=== PATIENT | male | born 1975 | race Caucasian/White ===

== ENCOUNTER 2023-12-09 17:55 | Emergency (ER) | payer BC, SELFPAY ==
[2023-12-09 17:56] VITALS: BMI 24.5
[2023-12-09 17:58] VITALS: BP 114/81
--- NOTE | 2023-12-09 19:05 | ED.GENMED ---
History of Present Illness
General
Chief Complaint: Headache
Source: patient
Exam Limitations: none
Time Seen by Provider: 12/09/23 18:39
Nursing documentation reviewed up to this point in time: agreed with
Travel History
Have you had any contact with someone who has COVID-19?: No
Do you have any symptoms of coronavirus? Fever > 100 degrees, chills, cough, shortness of breath, sore throat, loss of taste or smell, muscle aches, or headache?: No
History of Present Illness
History of Present Illness:
48-year-old male presents to the ER for evaluation. Patient was brought by . Patient started with headache last night and then did develop a fever of 101. He normally aspirin if needed and did take aspirin however this has not relieved his
headache. He has had occasional headaches in the past but he reports this is the worst headache he has had. He does report however he feels that it started more gradually. He again had a fever today of 101 but denies any runny nose nasal
congestion sore throat body aches. He denies any photophobia, denies any neck pain or neck sensitivity. Denies any injury
Review of Systems
Review of Systems
Allergies reviewed?: Yes
All Other Systems: ROS reviewed and negative except as documented in HPI and ROS
Constitutional: Reports fever
EENT: Reports no symptoms
Respiratory: Reports no symptoms; Denies cough or trouble breathing
Cardiac: Reports no symptoms
ABD/GI: Reports no symptoms; Denies nausea or vomiting
: Reports no symptoms
Musculoskeletal: Reports no symptoms
Skin: Reports no symptoms
Neurological: Reports headache; Denies dizzy, weakness or numbness
Psychiatric: Reports no symptoms
Phy Exam
General Physical Exam
General Presentation: no apparent distress
General age: appears stated age
General Skin: warm and dry
General Habitus: normal
General Mental: alert
General Hydration: appears well hydrated
ENT Exam
ENT Exam: neck supple
Eye Exam
Eye Exam: PERRL and EOMI
Eye Exam General: PERRL: bilateral and EOM intact: bilateral
Pupil Exam: Bilateral: round and reactive
Neurological Exam
Neurological Exam: alert, oriented x3, no motor deficits and no sensory deficits
Musculoskeletal Exam
Musculoskeletal Exam: full ROM
Skin Exam
Skin Exam: normal color and warm/dry
Psychiatric Exam
Psychiatric Exam: normal mood/affect
Course
Orders/Labs/Results
Orders:
Orders
12/09/23 19:09
IV Insert/Care/Rem.- Treatment PRN
0.9% Sodium Chloride 1000 ml [Nss] 1,000 ml IV BOLUS
Diphenhydramine [Benadryl] 25 mg IV NOW STA
Metoclopramide [Reglan] 10 mg IV NOW STA
12/09/23 19:34
COVID-19 Antigen Urgent
Source: Nasal Swab
Complete Blood Count/With Diff Urgent
Comprehensive Metabolic Panel Urgent
Influenza A+B Rapid Molecular Urgent
MYA Source: Nasal Swab
Specimen Description:
12/09/23 19:59
Ketorolac [Toradol] 15 mg IV NOW STA
Abnormal Lab Results
12/09/23
19:34
RBC 4.44 L 10^6/uL
(4.70-6.10)
Hct 38.6 L %
(39.0-52.0)
MCH 31.5 H pg
(27.0-31.0)
Absolute Lymphs (auto) 0.4 L 10^3/uL
(1.2-3.4)
Neutrophils % 79.9 H %
(42.2-75.2)
Lymphocytes % 7.7 L %
(20.5-51.1)
Monocytes % 11.2 H %
(1.7-9.3)
Glucose 144 H mg/dl
(70-99)
SARS-CoV-2 Antigen Positive A
(Negative)
12/09/23 19:34
12/09/23 19:34
Vital Signs
Initial and Last Documented VS:
Initial Vital Signs
Temp Pulse Resp BP Pulse Ox
98.4 F 100 19 114/81 95
12/09/23 17:58 12/09/23 17:58 12/09/23 17:58 12/09/23 17:58 12/09/23 17:58
Last Documented Vital Signs
Temp Pulse Resp BP Pulse Ox
99.3 F 87 20 127/81 96
12/09/23 21:00 12/09/23 21:00 12/09/23 21:00 12/09/23 21:00 12/09/23 21:00
Process Manufacturing Engineer consulted with Physician
Process Manufacturing Engineer consulted with physician?: Yes
Name of Physician Consulted: [email or web address]
MDM/Problems Addressed
Differential Diagnosis Includes:
Not limited to viral syndrome, COVID, flu, less likely meningitis
MDM/Problems Addressed:
Patient is a 48-year-old male who presents with headache that started last night. Patient did develop a fever of 101 at home today. Patient denies any runny nose sore throat cough. Patient presents awake alert he is in no acute distress no
meningismus however was found to be COVID-positive. CAT scan was initially ordered however in light of COVID being positive with fever at home and patient improving after Reglan Benadryl fluids we will hold off on CAT scan. Will give small dose
of Toradol and reevaluate. Patient appears well
On reevaluation patient feeling much better feels well to go home. Will discharge with supportive care.
*Critical Care Note
Total Time (30-74mins, 75-104mins- exclusive of procedures): Not Applicable
ED Attending Note
-
Portions of this chart may have been created with voice recognition software.� Occasional wrong word or��sound alike� substitutions may have occurred due to the inherent limitations of voice recognition software.
Discharge Plan
Departure
Patient Disposition: Home (Routine Discharge)
Date of Disposition: 12/09/23
Time of Disposition: 21:43
Patient with high blood pressure during this ER visit?: Yes
Condition: Fair
Covid-19: Confirmed COVID-19
Discharge Problem:
COVID-19, Headache
Instructions: Headache, Adult (DC), COVID-19 (DC), BLOOD PRESSURE
Referrals:
NONE,* [Family Provider] -
Activity Restrictions/Additional Instructions:
As discussed please get plenty of rest and stay well-hydrated. Alternate between Tylenol and ibuprofen for fever chills headache. Return if any worsening of symptoms including worsening headache.
Interventions
Interventions:
*Risk Screen - Suicide Last Done: 12/09/23 17:58
*General Assessment Last Done: 12/09/23 17:58
*Neglect/Abuse Screening Last Done: 12/09/23 17:58
ED- Fall Risk Assessment Last Done: 12/09/23 20:29
*ED COVID-19 Vaccine History Last Done: 12/09/23 22:28
*Nursing Disposition Last Done: 12/09/23 22:28
ED- Neurological Assessment Last Done: 12/09/23 20:29
ED-Skin Assessment Last Done: 12/09/23 20:29
Discharge Date and Time
Discharge Date/Time: 12/09/23 22:15
[2023-12-09] MEDS: BENADRYL 25 MG IV (19:23)
[2023-12-09] MEDS: REGLAN 10 MG IV (19:23)
[2023-12-09] MEDS: NSS 1000 IV (19:24)
[2023-12-09 19:51] LABS: COVID-19 Antigen Positive (Negative)
[2023-12-09 19:54] LABS: ALT (SGPT) 20 U/L (0-50); AST (SGOT) 26 U/L (17-59); Albumin 3.8 g/dl (3.5-5.0); Alkaline Phosphatase 51 U/L (38-126); Blood Urea Nitrogen 15 mg/dl (9-20); Calcium 8.6 mg/dl (8.4-10.2); Carbon Dioxide 24 mmol/L (22-30); Chloride 102 mmol/L (98-107); Estimated Creatinine Clearance 103 ml/min; Glucose 144 mg/dl (70-99); Potassium 3.6 mmol/L (3.5-5.1); Sodium 136 mmol/L (135-145); Total Bilirubin 0.4 mg/dl (0.2-1.3); Total Protein 6.5 g/dl (6.3-8.2); eGFR > 60.00
[2023-12-09 19:57] LABS: % Basophils 0.8 % (0-2); % Eosinophils 0.2 % (0-6); % Immature Granulocytes 0.2 % (0-0.5); % Lymphocytes 7.7 % (20.5-51.1); % Monocytes 11.2 % (1.7-9.3); % Neutrophils 79.9 % (42.2-75.2); Absolute Lymphocytes 0.4 10^3/uL (1.2-3.4); Absolute Monocytes 0.6 10^3/uL (0.1-0.6); Absolute Neutrophils 4.1 10^3/uL (1.4-6.5); Hematocrit 38.6 % (39.0-52.0); Mean Corp Hgb Conc. 36.3 g/dL (33.0-37.0); Mean Corpuscular Hgb 31.5 pg (27.0-31.0); Mean Corpuscular Volume 86.9 fL (80.0-94.0); Mean Platelet Volume 10.1 fL (7.4-10.4); Nucleated Red Blood Cells % 0 % (-); Platelet Count 177 10^3/uL (130-400); Red Blood Cell Count 4.44 10^6/uL (4.70-6.10); Red Cell Dist. Width 12.1 % (11.5-14.5); White Blood Cell Count 5.2 10^3/uL (4.8-10.8)
[2023-12-09] MEDS: TORADOL 15 MG IV (20:33)
[2023-12-09 21:00] VITALS: BP 127/81
== END 2023-12-09 22:15 | disposition home or self-care (01) ==
LOC: EMR 17:55
PROVIDERS: Nurse Practitioner; EMERGENCY PHYSICIAN Emergency Medicine
DX: U07.1 COVID-19 (principal); R51.9 Headache, unspecified; R03.0 Elevated blood-pressure reading, without diagnosis of hypertension
CPT/HCPCS: 99284; 96374; 96375 ×2; 96361; 80053; 85025; 87502; 87811